=== PATIENT | female | born 1995 | race Caucasian/White ===

== ENCOUNTER 2020-08-19 10:10 | Outpatient (CLI) | payer OTHER ==
[~2020-08-19] VITALS: Ht 175.3 cm; Wt 115.5 kg
[2020-08-19 10:19] VITALS: BP 116/66
== END 2020-08-19 12:03 | disposition home or self-care (01) ==
LOC: LDOP 10:10
PROVIDERS: ATTEND Obstetrics & Gynecology Maternal & Fetal Medicine
DX: O36.5930 Maternal care for other known or suspected poor fetal growth, third trimester, not applicable or unspecified (principal); Z3A.30 30 weeks gestation of pregnancy
CPT/HCPCS: 59025; 76815

== ENCOUNTER 2020-08-29 11:00 | Inpatient (IN) | payer OTHER ==
[~2020-08-29] VITALS: Ht 175.3 cm; Wt 118.2 kg
[2020-08-29 11:16] VITALS: BP 134/77
[2020-08-29] MEDS: LACTATED RINGERS 1,000 ML IV SCH ×2 (16:00→18:10)
[2020-08-29] MEDS: BETAMETHASONE 6 MG/ML, 5ML IM SCH (16:30)
[2020-08-29 17:52] LABS: BASOPHILS % (AUTO) 1 % (0-1); EOSINOPHILS % (AUTO) 1 % (1-7); LYMPHOCYTES % (AUTO) 12 % (22-44); MEAN CORPUSCULAR HEMOGLOBIN 29.2 pg (27.0-34.8); MEAN CORPUSCULAR HGB CONC 33.7 g/dL (32.4-35.8); MEAN PLATELET VOLUME 7.6 fL (7.4-10.4); MONOCYTES % (AUTO) 7 % (2-9); NEUTROPHILS % (AUTO) 80 % (42-75); PLATELET COUNT 284 x10^3/uL (130-400); RED BLOOD COUNT 4.09 x10^6/uL (3.82-5.3); RED CELL DISTRIBUTION WIDTH 13.3 % (9.6-15.2)
[2020-08-29 17:55] LABS: MD NO
[2020-08-29 18:05] LABS: ALANINE AMINOTRANSFERASE 29 U/L (12-78); ALBUMIN 2.5 g/dL (3.4-5.0); ANION GAP 7 mmol/L (5-15); CALCIUM 8.5 mg/dL (8.5-10.1); CHLORIDE 109 mmol/L (98-107); CREATININE 0.49 mg/dL (0.55-1.02)
[2020-08-29 18:07] LABS: ALKALINE PHOSPHATASE 128 U/L (45-117); BILIRUBIN,TOTAL 0.2 mg/dL (0.2-1.0); TOTAL PROTEIN 6.6 g/dL (6.4-8.2)
[2020-08-30] MEDS: PRENATAL VIT/IRON/FA 1 EACH TABLET PO SCH (08:27)
[2020-08-30] MEDS: DOCUSATE 100 MG CAPSULE PO SCH ×2 (08:27→21:00)
[2020-08-30] MEDS: SODIUM CHLORIDE FLUSH 10ML SYR IVF SCH ×2 (08:29→21:00)
[2020-08-30 08:47] VITALS: BP 118/63
[2020-08-30] MEDS: LACTATED RINGERS 1,000 ML IV SCH ×2 (10:00→18:00)
[2020-08-30] MEDS: BETAMETHASONE 6 MG/ML, 5ML IM SCH (16:30)
[2020-08-30 19:40] VITALS: BP 126/63
[2020-08-31] MEDS: LACTATED RINGERS 1,000 ML IV SCH ×3 (02:00→18:00)
[2020-08-31 08:06] VITALS: BP 116/70
[2020-08-31] MEDS: SODIUM CHLORIDE FLUSH 10ML SYR IVF SCH ×2 (09:00→22:30)
[2020-08-31] MEDS: PRENATAL VIT/IRON/FA 1 EACH TABLET PO SCH (09:58)
[2020-08-31] MEDS: DOCUSATE 100 MG CAPSULE PO SCH ×2 (09:58→21:00)
[2020-08-31 19:40] VITALS: BP 115/70
[2020-09-01] MEDS: LACTATED RINGERS 1,000 ML IV SCH ×3 (02:00→18:00)
[2020-09-01] MEDS: SODIUM CHLORIDE FLUSH 10ML SYR IVF SCH ×2 (08:41→21:00)
[2020-09-01] MEDS: PRENATAL VIT/IRON/FA 1 EACH TABLET PO SCH (08:42)
[2020-09-01] MEDS: DOCUSATE 100 MG CAPSULE PO SCH ×2 (09:00→21:00)
[2020-09-01 19:40] VITALS: BP 128/74
[2020-09-02] MEDS: LACTATED RINGERS 1,000 ML IV SCH (02:00)
[2020-09-02] MEDS: DOCUSATE 100 MG CAPSULE PO SCH ×2 (08:18→21:00)
[2020-09-02] MEDS: PRENATAL VIT/IRON/FA 1 EACH TABLET PO SCH (08:18)
[2020-09-02] MEDS: SODIUM CHLORIDE FLUSH 10ML SYR IVF SCH (08:18)
[2020-09-03] MEDS: DOCUSATE 100 MG CAPSULE PO SCH (08:23)
[2020-09-03] MEDS: PRENATAL VIT/IRON/FA 1 EACH TABLET PO SCH (08:23)
[2020-09-03] MEDS ORDERED: PREN1TAB60 PO (11:15)
== END 2020-09-03 11:34 | disposition home or self-care (01) | DRG 833 ==
LOC: LDOP 11:00 → OBSVTOIN 15:35 → LDIP 15:35
PROVIDERS: ADMIT Obstetrics & Gynecology; ATTEND Obstetrics & Gynecology
PROC: 4A1H7CZ Monitoring of Products of Conception, Cardiac Rate, Via Natural or Artificial Opening (ICD-10-PCS; principal; 2020-08-29)
DX: O99.213 Obesity complicating pregnancy, third trimester (principal); E66.01 Morbid (severe) obesity due to excess calories; O36.5930 Maternal care for other known or suspected poor fetal growth, third trimester, not applicable or unspecified; Z20.822 Contact with and (suspected) exposure to COVID-19; Z3A.32 32 weeks gestation of pregnancy
CPT/HCPCS: 36415; 80053; 84550; 85025; 86592; 86762; 86850; 86900; 87635; 87806; G0378; J0702; G0475; J7120

== ENCOUNTER 2020-09-04 15:41 | Inpatient (IN) | payer OTHER ==
[~2020-09-04] VITALS: Ht 175.3 cm; Wt 120.3 kg
[~2020-09-04 15:41] MED LIST: PREN1TAB60 PO
[2020-09-04] MEDS ORDERED: METOCLOPRAMIDE 5 MG/ML, 2ML IV ONE (16:00)
[2020-09-04] MEDS ORDERED: CALCIUM CARBONATE 500 MG TAB.CHEW PO PRN (16:00)
[2020-09-04] MEDS ORDERED: SODIUM CITRATE/CITRIC ACID 30 ML UDC PO ONE (16:00)
[2020-09-04] MEDS: LACTATED RINGERS 1,000 ML IV SCH (16:00)
[2020-09-04] MEDS ORDERED: ONDANSETRON 2MG/ML, 2ML IVPush ONE (16:00)
[2020-09-04] MEDS ORDERED: NEWBORN KIT ONE (16:17)
[2020-09-04 16:27] LABS: BASOPHILS % (AUTO) 1 % (0-1); EOSINOPHILS % (AUTO) 0 % (1-7); LYMPHOCYTES % (AUTO) 11 % (22-44); MEAN CORPUSCULAR HEMOGLOBIN 28.9 pg (27.0-34.8); MEAN CORPUSCULAR HGB CONC 33.3 g/dL (32.4-35.8); MEAN PLATELET VOLUME 7.9 fL (7.4-10.4); MONOCYTES % (AUTO) 4 % (2-9); NEUTROPHILS % (AUTO) 84 % (42-75); PLATELET COUNT 292 x10^3/uL (130-400); RED BLOOD COUNT 4.25 x10^6/uL (3.82-5.3); RED CELL DISTRIBUTION WIDTH 13.2 % (9.6-15.2)
[2020-09-04 16:34] LABS: MD NO
[2020-09-04 19:25] VITALS: BP 106/69
[2020-09-05] MEDS: PRENATAL VIT/IRON/FA 1 EACH TABLET PO SCH (07:57)
[2020-09-05] MEDS: LACTATED RINGERS 1,000 ML IV SCH ×3 (08:00→16:00)
[2020-09-05 08:03] VITALS: BP 126/78
[2020-09-05 20:00] VITALS: BP 129/83
[2020-09-06 08:28] VITALS: BP 131/69
[2020-09-06] MEDS: PRENATAL VIT/IRON/FA 1 EACH TABLET PO SCH (09:07)
[2020-09-06] MEDS: DOCUSATE 100 MG CAPSULE PO PRN (09:07)
[2020-09-07] MEDS: PRENATAL VIT/IRON/FA 1 EACH TABLET PO SCH (09:10)
[2020-09-07 20:30] VITALS: BP 116/59
[2020-09-08] MEDS: DOCUSATE 100 MG CAPSULE PO PRN (09:26)
[2020-09-08] MEDS: PRENATAL VIT/IRON/FA 1 EACH TABLET PO SCH (09:26)
[2020-09-08 20:30] VITALS: BP 131/80
[2020-09-09] MEDS: DOCUSATE 100 MG CAPSULE PO PRN (09:27)
[2020-09-09] MEDS: PRENATAL VIT/IRON/FA 1 EACH TABLET PO SCH (09:27)
[2020-09-09] MEDS: LACTATED RINGERS 1,000 ML IV SCH (10:58)
[2020-09-09] MEDS: SODIUM CHLORIDE FLUSH 3ML SYRINGE IVF SCH (20:19)
[2020-09-10 07:35] VITALS: BP 118/74
[2020-09-10] MEDS: DOCUSATE 100 MG CAPSULE PO PRN (07:40)
[2020-09-10] MEDS: PRENATAL VIT/IRON/FA 1 EACH TABLET PO SCH (07:40)
[2020-09-10] MEDS: SODIUM CHLORIDE FLUSH 3ML SYRINGE IVF SCH ×2 (09:00→21:00)
[2020-09-10] MEDS: LACTATED RINGERS 1,000 ML IV SCH (10:17)
[2020-09-10] MEDS ORDERED: NEWBORN KIT ONE (11:44)
[2020-09-10 16:44] LABS: BASOPHILS % (AUTO) 1 % (0-1); EOSINOPHILS % (AUTO) 1 % (1-7); LYMPHOCYTES % (AUTO) 11 % (22-44); MEAN CORPUSCULAR HEMOGLOBIN 29.3 pg (27.0-34.8); MEAN CORPUSCULAR HGB CONC 33.9 g/dL (32.4-35.8); MEAN PLATELET VOLUME 8.1 fL (7.4-10.4); MONOCYTES % (AUTO) 5 % (2-9); NEUTROPHILS % (AUTO) 82 % (42-75); PLATELET COUNT 266 x10^3/uL (130-400); RED BLOOD COUNT 4.41 x10^6/uL (3.82-5.3); RED CELL DISTRIBUTION WIDTH 13.4 % (9.6-15.2)
[2020-09-10 16:47] LABS: MD NO
[2020-09-10 19:43] VITALS: BP 113/80
[2020-09-11 07:26] VITALS: BP 108/68
[2020-09-11] MEDS ORDERED: hydrALAzine 20 MG/ML, 1ML IV PRN (08:30)
[2020-09-11] MEDS ORDERED: PROMETHAZINE 25 MG/ML, 1ML IV PRN (08:30)
[2020-09-11] MEDS ORDERED: METOPROLOL 1 MG/ML, 5ML IV PRN (08:30)
[2020-09-11] MEDS ORDERED: OXYcodone 5 MG/5 ML ORAL.SOL UDC PO PRN (08:30)
[2020-09-11] MEDS ORDERED: ONDANSETRON 2MG/ML, 2ML IVPush PRN (08:30)
[2020-09-11] MEDS ORDERED: MIDAZOLAM 1 MG/ML, 2ML IV PRN (08:30)
[2020-09-11] MEDS ORDERED: FENTANYL PF 100 MCG/2ML IV PRN (08:30)
[2020-09-11] MEDS ORDERED: MEPERIDINE/PF 25MG/0.5ML IVPush PRN (08:30)
[2020-09-11] MEDS ORDERED: HYDROcodone/APAP 7.5-325MG/15ML UDC PO PRN ×2 (08:30→20:30)
[2020-09-11] MEDS ORDERED: HYDROmorphone 2 MG/ML, 1ML IVPush PRN (08:30)
[2020-09-11] MEDS ORDERED: ALBUTEROL SULFATE 2.5 MG/3 ML NPPB PRN (08:30)
[2020-09-11] MEDS ORDERED: LABETALOL 5MG/ML, 20ML IV PRN (08:30)
[2020-09-11] MEDS ORDERED: EPHEDRINE 50 MG/ML, 1ML IVPush PRN (08:30)
[2020-09-11] MEDS: SODIUM CHLORIDE FLUSH 3ML SYRINGE IVF SCH ×2 (09:00→21:00)
[2020-09-11] MEDS: PRENATAL VIT/IRON/FA 1 EACH TABLET PO SCH (09:00)
[2020-09-11] MEDS ORDERED: LACTATED RINGERS 1,000 ML IV SCH (13:30)
[2020-09-11] MEDS ORDERED: LACTATED RINGERS 1,000 ML IVBOLUS ONE (13:30)
[2020-09-11] MEDS ORDERED: OXYTOCIN 30U/ 0.9% NaCL 500ML 500 ML ONE (14:44)
[2020-09-11] MEDS ORDERED: SODIUM CITRATE/CITRIC ACID 15 ML UDC ONE (14:44)
[2020-09-11] MEDS ORDERED: METOCLOPRAMIDE 5 MG/ML, 2ML ONE (14:44)
[2020-09-11] MEDS: LACTATED RINGERS 1,000 ML IV SCH ×3 (16:52→20:30)
[2020-09-11] MEDS ORDERED: CEFAZOLIN 1,000 MG ONE (17:08)
[2020-09-11] MEDS ORDERED: ONDANSETRON 2MG/ML, 2ML ONE (17:08)
[2020-09-11] MEDS ORDERED: KETOROLAC 30 MG/1 ML ONE (17:08)
[2020-09-11] MEDS ORDERED: EPHEDRINE 50 MG/ML, 1ML ONE (17:08)
[2020-09-11] MEDS ORDERED: DEXAMETHASONE 4 MG/ML, 1ML ONE (17:08)
[2020-09-11] MEDS ORDERED: HYDROmorphone 2 MG/ML, 1ML ONE (17:08)
[2020-09-11] MEDS ORDERED: FENTANYL PF 100 MCG/2ML ONE (17:08)
[2020-09-11] MEDS ORDERED: PHENYLEPHRINE 10 MG/ML ONE (17:08)
[2020-09-11] MEDS ORDERED: OXYTOCIN 10 UNITS/ML, 1ML ONE (17:08)
[2020-09-11] MEDS ORDERED: SODIUM CITRATE/CITRIC ACID 30 ML UDC PO ONE (18:00)
[2020-09-11] MEDS ORDERED: METOCLOPRAMIDE 5 MG/ML, 2ML IV ONE (18:00)
[2020-09-11] MEDS: TRANEXAMIC ACID 100 MG/ML, 10ML IV ONE (20:30)
[2020-09-11] MEDS ORDERED: DOCUSATE 100 MG CAPSULE PO PRN (20:30)
[2020-09-11] MEDS: OXYTOCIN 30U/ 0.9% NaCL 500ML 500 ML IV SCH (20:30)
[2020-09-11] MEDS ORDERED: ACETAMINOPHEN 325 MG TABLET PO PRN (20:30)
[2020-09-11] MEDS ORDERED: ONDANSETRON 2MG/ML, 2ML IV PRN (20:30)
[2020-09-11] MEDS ORDERED: morphine SULFATE 10 MG/ML, 1ML IM PRN (20:30)
[2020-09-11] MEDS ORDERED: CARBOPROST TROMETHAMINE 250 MCG/ML, 1ML IM PRN (20:30)
[2020-09-11] MEDS ORDERED: SIMETHICONE 80 MG CHEW TAB PO PRN (20:30)
[2020-09-11] MEDS ORDERED: METHYLERGONOVINE 0.2 MG/ML IM PRN (20:30)
[2020-09-11] MEDS ORDERED: OXYcodone IR 5MG TABLET PO PRN (20:30)
[2020-09-11] MEDS ORDERED: MORPHINE SULFATE 4 MG/ML, 1ML IVPush PRN (20:30)
[2020-09-11] MEDS ORDERED: OXYcodone/APAP 5/325MG TABLET ONE (20:33)
[2020-09-11] MEDS: OXYcodone/APAP 5/325MG TABLET PO PRN (20:34)
[2020-09-11 20:35] VITALS: BP 114/75
[2020-09-12 00:20] VITALS: BP 105/60
[2020-09-12] MEDS: OXYcodone/APAP 5/325MG TABLET PO PRN ×6 (00:49→21:52)
[2020-09-12] MEDS: KETOROLAC 30 MG/1 ML IV SCH ×4 (01:13→19:16)
[2020-09-12] MEDS ORDERED: KETOROLAC 30 MG/1 ML IV SCH (01:30)
[2020-09-12 02:38] LABS: BASOPHILS % (AUTO) 0 % (0-1); EOSINOPHILS % (AUTO) 0 % (1-7); LYMPHOCYTES % (AUTO) 6 % (22-44); MEAN CORPUSCULAR HEMOGLOBIN 29.6 pg (27.0-34.8); MEAN CORPUSCULAR HGB CONC 34.1 g/dL (32.4-35.8); MEAN PLATELET VOLUME 7.7 fL (7.4-10.4); MONOCYTES % (AUTO) 4 % (2-9); NEUTROPHILS % (AUTO) 89 % (42-75); PLATELET COUNT 207 x10^3/uL (130-400); RED BLOOD COUNT 3.59 x10^6/uL (3.82-5.3); RED CELL DISTRIBUTION WIDTH 13.6 % (9.6-15.2)
[2020-09-12 02:39] LABS: MD NO
[2020-09-12 04:30] VITALS: BP 99/64
[2020-09-12] MEDS: LACTATED RINGERS 1,000 ML IV SCH ×3 (05:00→16:30)
[2020-09-12] MEDS: OXYTOCIN 30U/ 0.9% NaCL 500ML 500 ML IV SCH ×2 (05:47→16:30)
[2020-09-12] MEDS: PRENATAL VIT/IRON/FA 1 EACH TABLET PO SCH ×2 (07:21)
[2020-09-12] MEDS: DOCUSATE 100 MG CAPSULE PO PRN ×2 (07:21→21:52)
[2020-09-12 07:40] VITALS: BP 99/60
[2020-09-12 17:44] VITALS: BP 93/51
[2020-09-12 20:00] VITALS: BP 98/64
[2020-09-13] MEDS: KETOROLAC 30 MG/1 ML IV SCH ×4 (01:17→19:34)
[2020-09-13] MEDS: OXYTOCIN 30U/ 0.9% NaCL 500ML 500 ML IV SCH (02:30)
[2020-09-13] MEDS: LACTATED RINGERS 1,000 ML IV SCH (02:30)
[2020-09-13] MEDS: OXYcodone/APAP 5/325MG TABLET PO PRN ×5 (04:37→22:45)
[2020-09-13] MEDS: PRENATAL VIT/IRON/FA 1 EACH TABLET PO SCH ×2 (07:26→09:00)
[2020-09-13] MEDS: DOCUSATE 100 MG CAPSULE PO PRN ×2 (07:27→22:44)
[2020-09-13 07:30] VITALS: BP 111/68
[2020-09-13 20:00] VITALS: BP 113/76
[2020-09-14] MEDS ORDERED: KETOROLAC 30 MG/1 ML ONE (02:48)
[2020-09-14] MEDS: OXYcodone/APAP 5/325MG TABLET PO PRN ×5 (02:52→19:51)
[2020-09-14 07:05] VITALS: BP 98/70
[2020-09-14] MEDS: PRENATAL VIT/IRON/FA 1 EACH TABLET PO SCH ×2 (07:20→09:00)
[2020-09-14] MEDS: DOCUSATE 100 MG CAPSULE PO PRN ×2 (07:21→19:50)
[2020-09-14] MEDS: IBUPROFEN 800 MG TABLET PO PRN ×2 (07:21→15:21)
[2020-09-14 20:00] VITALS: BP 113/77
[2020-09-15] MEDS: IBUPROFEN 800 MG TABLET PO PRN ×2 (01:43→11:57)
[2020-09-15] MEDS: OXYcodone/APAP 5/325MG TABLET PO PRN ×3 (01:43→11:57)
[2020-09-15] MEDS: DOCUSATE 100 MG CAPSULE PO PRN (07:40)
[2020-09-15] MEDS: PRENATAL VIT/IRON/FA 1 EACH TABLET PO SCH ×2 (07:40→09:00)
[2020-09-15 07:50] VITALS: BP 112/76
== END 2020-09-15 12:35 | disposition home or self-care (01) | DRG 788 ==
LOC: LDIP 15:41 → 2NW 09-11 20:28
PROVIDERS: ADMIT Obstetrics & Gynecology; ATTEND Obstetrics & Gynecology
PROC: 10D00Z1 Extraction of Products of Conception, Low, Open Approach (ICD-10-PCS; principal; 2020-09-11)
DX: O36.5930 Maternal care for other known or suspected poor fetal growth, third trimester, not applicable or unspecified (principal); O99.214 Obesity complicating childbirth; E66.01 Morbid (severe) obesity due to excess calories; Z20.822 Contact with and (suspected) exposure to COVID-19; Z3A.34 34 weeks gestation of pregnancy; Z37.0 Single live birth
CPT/HCPCS: 36415; 85025; 86850; 86900; 87635; 88305; G0378; J0690; J1100; J1170; J1885; J2405; J3010; J2370; J2590; J2765; J7120